=== PATIENT | male | born 1940 | race Caucasian/White ===

== ENCOUNTER 2018-11-26 08:43 | Emergency (ER) | payer MEDICARE, OTHER ==
[~2018-11-26] VITALS: Ht 180.3 cm; Wt 102.1 kg
--- OUTSIDE RECORDS SUMMARY | 2018-11-26 08:46 | XMS REPORT | Clinical Summary ---
Author Author KELLE [facility] Address Unknown Phone Unavailable Care Team Providers Care Metal Inspector Name Role Phone Hussein Quintero MD PCP Unavailable Allergies No Known Allergies Medications End Date Status Medication Sig Dispensed Refills Start Date Active naproxen (NAPROSYN) 500 Take 500 mg 0 MG tablet by mouth 2 (two) times daily with breakfast and dinner. Active ergocalciferol, vitamin Take 1 0 D2, (VITAMIN D2 ORAL) capsule by mouth daily. Active ibandronate (BONIVA) 150 Take 150 mg 0 mg tablet by mouth every 30 (thirty) days Take in AM with glass of water prior to food, don't lie down for 30 minutes. . Active zytbpkcdrbma-byrv-orram Take 1 tablet 0 acid (CENTRUM) 18-400 by mouth mg-mcg Tab daily. Active calcium carbonate-vitamin Take 1 tablet 0 D3 (OSCAL-D) 500 by mouth mg(1,250mg) -200 unit per daily. tablet Active verapamil (VERELAN PM) Take 180 mg 0 180 MG 24 hr capsule by mouth every morning. Active pravastatin (PRAVACHOL) Take 10 mg by 0 10 MG tablet mouth daily. Active omeprazole (PRILOSEC) 40 Take 40 mg by 0 MG capsule mouth daily. Active Problems Not on file Encounters Care Team Description Date Type Specialty Sarai Tripp MD COLONOSCOPY 06/07/2018 Surgery Kelly Muller MD 06/07/2018 Anesthesia Event Sarai Tripp MD 06/07/2018 Hospital Encounter Resource, [facility] Phone 05/20/2018 Hospital Pre-Admission Testing Encounter after 11/25/2017 Social History Date Tobacco Use Types Packs/Day Years Used Never Smoker Smokeless Tobacco: Never Used Alcohol Use Drinks/Week oz/Week Comments No Alcohol Habits Answer Date Recorded How often do you have a drink containing alcohol? Never 05/20/2018 How many drinks containing alcohol do you have on Not asked a typical day when you are drinking? How often do you have six or more drinks on one Not asked occasion? Sex Assigned at Date Recorded Not on file Industry Job Start Date Occupation Not on file Not on file Not on file Travel End Travel History Travel Start No recent travel history available. Last Filed Vital Signs Time Taken Vital Sign Reading 06/07/2018 11:50 AM DIRECT RESPONSE CONSULTANT Blood Pressure 131/72 06/07/2018 11:50 AM DIRECT RESPONSE CONSULTANT Pulse 74 06/07/2018 11:25 AM DIRECT RESPONSE CONSULTANT Temperature 36.3 C (97.4 F) 06/07/2018 11:50 AM DIRECT RESPONSE CONSULTANT Respiratory Rate 16 06/07/2018 11:50 AM DIRECT RESPONSE CONSULTANT Oxygen Saturation 98% - Inhaled Oxygen - Concentration 06/07/2018 9:46 AM DIRECT RESPONSE CONSULTANT Weight 99.8 kg (220 lb) 06/07/2018 9:46 AM DIRECT RESPONSE CONSULTANT Height 182.9 cm (6') 06/07/2018 9:46 AM DIRECT RESPONSE CONSULTANT Body Mass Index 29.84 Plan of Treatment Not on file Procedures Comments Procedure Name Priority Date/Time Associated Diagnosis REPORT OF PROCEDURE - 06/07/2018 ENDOSCOPY URL 11:31 AM DIRECT RESPONSE CONSULTANT REPORT OF PROCEDURE - 06/07/2018 ENDOSCOPY URL 11:23 AM DIRECT RESPONSE CONSULTANT TISSUE EXAM AP Routine 06/07/2018 10:44 AM DIRECT RESPONSE CONSULTANT UPPER ENDOSCOPY,BIOPSY 06/07/2018 Altered bowel habits 10:30 AM DIRECT RESPONSE CONSULTANT Rectal pain Pill dysphagia Globus syndrome COLONOSCOPY 06/07/2018 Altered bowel habits 10:30 AM DIRECT RESPONSE CONSULTANT Rectal pain Pill dysphagia 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 Results * REPORT OF PROCEDURE - ENDOSCOPY URL (06/07/2018 11:31 AM DIRECT RESPONSE CONSULTANT) Narrative Performed At * REPORT OF PROCEDURE - ENDOSCOPY URL (06/07/2018 11:23 AM DIRECT RESPONSE CONSULTANT) Narrative Performed At * Tissue Exam (06/07/2018 10:44 AM DIRECT RESPONSE CONSULTANT) Case Report Surgical Pathology [facility] Report [facility] Case: [id number] Authorizing Provider:Sarai Tripp MDCollected: 06/07/2018 1044 Ordering Location: [facility] ENDOSCOPY Received: 06/07/2018 1517 SERVICES Pathologist: Lilibeth Curry MD Specimens: A) - Biopsy, Gastric, Random stomach biopsies r/o H. pylori B) - Distal Esophagus, Distal esophageal biopsies C) - Proximal Esophagus, Proximal esophageal biopsies DIAGNOSIS A. GASTRIC, RANDOM BIOPSY: [facility] - GASTRIC BODY AND ANTRUM [facility] TYPE MUCOSA WITH MILD CHRONIC INACTIVE GASTRITIS - WARTHIN-STARRY STAIN NEGATIVE FOR H. PYLORI-LIKE ORGANISMS - IMMUNOSTAIN FOR H. PYLORI IS NEGATIVE B. DISTAL ESOPHAGUS, BIOPSY: - ESOPHAGUS SQUAMOUS MUCOSA WITH MILD BASAL CELL HYPERPLASIA AND INCREASED INTRAEPITHELIAL LYMPHOCYTES - FINDINGS SUGGESTIVE OF REFLUX C. PROXIMAL ESOPHAGUS, BIOPSY: - ESOPHAGUS SQUAMOUS MUCOSA WITH MILD REACTIVE CHANGES SJ/pl Signing Pathologist Direct Phone Line: [phone] COMMENT Endoscopic report reviewed. [facility] CPT Code(s) 28691 x3; 14346 x1; 69137 x1 [facility] CLINICAL HISTORY Altered bowel habits, rectal [facility] pain, pill dysphagia and [facility] globus syndrome, rule out H. Pylori SPECIMEN SOURCE A. Random gastric biopsy. B. [facility] Distal esophagus biopsy. C. [facility] Proximal esophagus biopsy GROSS DESCRIPTION Specimens are received in [facility] three containers of formalin [facility] all labeled with the patient's information. Specimen A: Labeled "random gastric biopsy" consists of two fragments of morris tissue measuring 0.1 and 0.2 cm, submitted entirely in A1. Specimen B: Labeled "distal esophagus biopsy" consists of two fragments of off-white tissue measuring 0.1 and 0.2 cm, submitted entirely in B1. Specimen C: Labeled "proximal esophageal biopsy" consists of two less than 0.1 cm fragments of off-white tissue submitted entirely in C1. CG/ew MICROSCOPIC DESCRIPTION Performed [facility] SPECIAL STUDIES The interpretation of this [facility] case included the use of [facility] immunohistochemistry or special stains. Immunohistochemistry technical testing was performed at [facility], Pathology Laboratory where it was developed and its performance characteristics were determined. It has not been cleared or approved by the U.S. Food and Drug Administration. The FDA has determined that such clearance or approval is not necessary. The test is used for clinical purposes. It should not be regarded as investigational or for research. This laboratory is certified under the Clinical Laboratory Improvement Amendments of 1988 (CLIA-88) as qualified to perform high complexity clinical laboratory testing. Specimen Tissue Tissue - Distal Esophagus Tissue - Proximal Esophagus Performing Organization Address City/State/Zipcode Phone Number [facility] [address] [place] [address] [facility] after 11/25/2017 Insurance Payer Benefit Subscriber ID Type Phone Address Plan / Group MEDICARE MEDICARE A xxxxxxxxxxx Medicare B OTHER-COMMERCIAL GENERIC xxxxxxxxxxxx COMMERCIAL
--- OUTSIDE RECORDS SUMMARY | 2018-11-26 08:46 | XMS REPORT ---
Author Author [facility] Address Unknown Phone Unavailable Care Team Providers Care Lokie Engineer Name Role Phone OSCAR TRIPP Unavailable Unavailable Payers Payer Name Policy Type Policy Number Effective Date Expiration Date Problems This patient has no known problems. Allergies, Adverse Reactions, Alerts Allergy Name Allergy Type Status Severity Reaction(s) Onset Date Inactive Date Treating Clinician Comments No Known Drug Allergies DA Active U 2018-07-13 00:00:00 No Known Drug Allergies DA Active U 2018-07-06 00:00:00 No Known Drug Intolerances DA Active U 2009-01-17 00:00:00 Medications This patient has no known medications. Results Test Description Test Time Test Comments Text Results Atomic Results Result Comments CBC W/AUTO DIFF 2018-08-01 07:56:00 WHITE BLOOD CELL (test code=WBC) 8.2 K/mm3 4.5-11.2 DONE AT: [facility] [address] [place] [address] RED BLOOD CELL (test code=RBC) 5.43 M/mm3 3.42-5.20 HEMOGLOBIN (test code=HGB) 15.4 g/dL 10.2-14.9 HEMATOCRIT (test code=HCT) 48.7 % 31.3-44.8 MEAN CELL VOLUME (test code=MCV) 90 fL 81-95 MEAN CELL HGB (test code=MCH) 28.4 pg 27-34 MEAN CELL HGB CONCENTRATION (test code=MCHC) 31.6 gm/dL 32-35 RED CELL DISTRIBUTION WIDTH (test code=RDW) 13.1 % 11.8-14.8 PLT (test code=PLT) 331 K/mm3 135-380 MEAN PLATELET VOLUME (test code=MPV) 9.7 fl 9.1-12.7 NEUTROPHIL % (test code=NT%) 50.0 % 51.5-79.7 LYMPHOCYTE % (test code=LY%) 37.9 % 14-40 MONOCYTE % (test code=MO%) 8.3 % 4.0-10.2 EOSINOPHIL % (test code=EO%) 2.7 % 0-4.1 BASOPHIL % (test code=BA%) 0.7 % 0.1-0.7 NEUTROPHIL # (test code=NT#) 4.1 K/mm3 () LYMPHOCYTE # (test code=LY#) 3.1 K/mm3 () MONOCYTE # (test code=MO#) 0.7 K/mm3 () EOSINOPHIL # (test code=EO#) 0.22 K/mm3 () BASOPHIL # (test code=BA#) 0.1 K/mm3 () PLATELET MORPHOLOGY REQUIRED (test code=PLTMR) NORMAL NORMAL SED [id number] 07:56:00* Test Item Value Reference Range Comments SED RATE (test code=SEDW) 20 mm/hr 0-20 VANCOMYCIN [id number] 06:07:00* Test Item Value Reference Range Comments VANCOMYCIN TROUGH (test code=VANCT) 8.1 mcg/mL 5-10 THERAPEUTIC RANGE: PEAK: 30-40 mcg/ml TROUGH: 5-10 mcg/ml TOXIC RANGE: 80-100 mcg/ml DATE OF LAST DOSE: 07/31/18TIME OF LAST DOSE: 0400CBC W/AUTO [id number] 16:58:00* Test Item Value Reference Range Comments WHITE BLOOD CELL (test code=WBC) 8.2 K/mm3 4.5-11.2 DONE AT: [address] [address] RED BLOOD CELL (test code=RBC) 5.43 M/mm3 3.42-5.20 HEMOGLOBIN (test code=HGB) 15.4 g/dL 10.2-14.9 HEMATOCRIT (test code=HCT) 48.7 % 31.3-44.8 MEAN CELL VOLUME (test code=MCV) 90 fL 81-95 MEAN CELL HGB (test code=MCH) 28.4 pg 27-34 MEAN CELL HGB CONCENTRATION (test code=MCHC) 31.6 gm/dL 32-35 RED CELL DISTRIBUTION WIDTH (test code=RDW) 13.1 % 11.8-14.8 PLT (test code=PLT) 331 K/mm3 135-380 MEAN PLATELET VOLUME (test code=MPV) fl 9.1-12.7 NEUTROPHIL % (test code=NT%) 50.0 % 51.5-79.7 LYMPHOCYTE % (test code=LY%) 37.9 % 14-40 MONOCYTE % (test code=MO%) 8.3 % 4.0-10.2 EOSINOPHIL % (test code=EO%) 2.7 % 0-4.1 BASOPHIL % (test code=BA%) 0.7 % 0.1-0.7 NEUTROPHIL # (test code=NT#) 4.1 K/mm3 () LYMPHOCYTE # (test code=LY#) 3.1 K/mm3 () MONOCYTE # (test code=MO#) 0.7 K/mm3 () EOSINOPHIL # (test code=EO#) 0.22 K/mm3 () BASOPHIL # (test code=BA#) 0.1 K/mm3 () PLATELET MORPHOLOGY REQUIRED (test code=PLTMR) NORMAL NORMAL SED [id number] 16:58:00* Test Item Value Reference Range Comments SED RATE (test code=SEDW) 20 mm/hr 0-20 CBC W/AUTO [id number] 16:57:00* Test Item Value Reference Range Comments WHITE BLOOD CELL (test code=WBC) 8.2 K/mm3 4.5-11.2 RED BLOOD CELL (test code=RBC) 5.43 M/mm3 3.42-5.20 HEMOGLOBIN (test code=HGB) 15.4 g/dL 10.2-14.9 HEMATOCRIT (test code=HCT) 48.7 % 31.3-44.8 MEAN CELL VOLUME (test code=MCV) 90 fL 81-95 MEAN CELL HGB (test code=MCH) 28.4 pg 27-34 MEAN CELL HGB CONCETRATION (test code=MCHC) 31.6 gm/dL 32-35 RED CELL DISTRIBUTION WIDTH (test code=RDW) 13.1 % 11.8-14.8 PLATELET COUNT (test code=PLT) 331 K/mm3 135-380 IMMATURE PLATELET FRACTION (test code=IPF) 0.0 % 0.0-10.8 MEAN PLATELET VOLUME (test code=MPV) 9.7 fl 9.1-12.7 NEUTROPHIL % (test code=NT%) 50.0 % 51.5-79.7 LYMPHOCYTE % (test code=LY%) 37.9 % 14-40 MONOCYTE % (test code=MO%) 8.3 % 4.0-10.2 EOSINOPHIL % (test code=EO%) 2.7 % 0-4.1 BASOPHIL % (test code=BA%) 0.7 % 0.1-0.7 NEUTROPHIL # (test code=NT#) 4.1 K/mm3 LYMPHOCYTE # (test code=LY#) 3.1 K/mm3 MONOCYTE # (test code=MO#) 0.7 K/mm3 EOSINOPHIL # (test code=EO#) 0.22 K/mm3 BASOPHIL # (test code=BA#) 0.1 K/mm3 RBC MORPHOLOGY REQUIRED (test code=RBCM) NORMAL NORMAL PLATELET MORPHOLOGY REQUIRED (test code=PLTMR) NORMAL NORMAL SED [id number] 16:57:00* Test Item Value Reference Range Comments SED RATE (test code=SEDW) 20 mm/hr 0-20 CBC W/AUTO [id number] 16:20:00* Test Item Value Reference Range Comments WHITE BLOOD CELL (test code=WBC) 8.2 K/mm3 4.5-11.2 DONE AT: [address] [address] RED BLOOD CELL (test code=RBC) 5.43 M/mm3 3.42-5.20 HEMOGLOBIN (test code=HGB) 15.4 g/dL 10.2-14.9 HEMATOCRIT (test code=HCT) 48.7 % 31.3-44.8 MEAN CELL VOLUME (test code=MCV) 90 fL 81-95 MEAN CELL HGB (test code=MCH) 28.4 pg 27-34 MEAN CELL HGB CONCENTRATION (test code=MCHC) 31.6 gm/dL 32-35 RED CELL DISTRIBUTION WIDTH (test code=RDW) 13.1 % 11.8-14.8 PLT (test code=PLT) 331 K/mm3 135-380 MEAN PLATELET VOLUME (test code=MPV) fl 9.1-12.7 NEUTROPHIL % (test code=NT%) 50.0 % 51.5-79.7 LYMPHOCYTE % (test code=LY%) 37.9 % 14-40 MONOCYTE % (test code=MO%) 8.3 % 4.0-10.2 EOSINOPHIL % (test code=EO%) 2.7 % 0-4.1 BASOPHIL % (test code=BA%) 0.7 % 0.1-0.7 NEUTROPHIL # (test code=NT#) 4.1 K/mm3 () LYMPHOCYTE # (test code=LY#) 3.1 K/mm3 () MONOCYTE # (test code=MO#) 0.7 K/mm3 () EOSINOPHIL # (test code=EO#) 0.22 K/mm3 () BASOPHIL # (test code=BA#) 0.1 K/mm3 () PLATELET MORPHOLOGY REQUIRED (test code=PLTMR) NORMAL NORMAL SED [id number] 16:20:00* Test Item Value Reference Range Comments SED RATE (test code=SEDW) mm/hr 0-15 CBC W/AUTO [id number] 16:19:00* Test Item Value Reference Range Comments WHITE BLOOD CELL (test code=WBC) 8.2 K/mm3 4.5-11.2 RED BLOOD CELL (test code=RBC) 5.43 M/mm3 3.42-5.20 HEMOGLOBIN (test code=HGB) 15.4 g/dL 10.2-14.9 HEMATOCRIT (test code=HCT) 48.7 % 31.3-44.8 MEAN CELL VOLUME (test code=MCV) 90 fL 81-95 MEAN CELL HGB (test code=MCH) 28.4 pg 27-34 MEAN CELL HGB CONCETRATION (test code=MCHC) 31.6 gm/dL 32-35 RED CELL DISTRIBUTION WIDTH (test code=RDW) 13.1 % 11.8-14.8 PLATELET COUNT (test code=PLT) 331 K/mm3 135-380 IMMATURE PLATELET FRACTION (test code=IPF) 0.0 % 0.0-10.8 MEAN PLATELET VOLUME (test code=MPV) 9.7 fl 9.1-12.7 NEUTROPHIL % (test code=NT%) 50.0 % 51.5-79.7 LYMPHOCYTE % (test code=LY%) 37.9 % 14-40 MONOCYTE % (test code=MO%) 8.3 % 4.0-10.2 EOSINOPHIL % (test code=EO%) 2.7 % 0-4.1 BASOPHIL % (test code=BA%) 0.7 % 0.1-0.7 NEUTROPHIL # (test code=NT#) 4.1 K/mm3 LYMPHOCYTE # (test code=LY#) 3.1 K/mm3 MONOCYTE # (test code=MO#) 0.7 K/mm3 EOSINOPHIL # (test code=EO#) 0.22 K/mm3 BASOPHIL # (test code=BA#) 0.1 K/mm3 RBC MORPHOLOGY REQUIRED (test code=RBCM) NORMAL NORMAL PLATELET MORPHOLOGY REQUIRED (test code=PLTMR) NORMAL NORMAL SED [id number] 16:19:00* Test Item Value Reference Range Comments SED RATE (test code=SEDW) mm/hr 0-20 BASIC METABOLIC [id number] 16:11:00* Test Item Value Reference Range Comments SODIUM (test code=NA) 139 mEq/L 135-145 POTASSIUM (test code=K) 4.1 mEq/L 3.5-5.0 CHLORIDE (test code=CL) 102 mEq/L 100-115 CARBON DIOXIDE (test code=CO2) 29 mEq/L 22-31 GLUCOSE (test code=GLU) 96 mg/dL 65-110 BLOOD UREA NITROGEN (test code=BUN) 13 mg/dL 7-18 GLOMERULAR FILTRATION RATE (test code=GFR) 72.1 >60 Unit of measure: mL/min/1.73 [id number] Range:Healthy Adults >90 mL/min/1.73 m2 For Chronic Kidney Disease: Stage II Mild Decrease in GFR 60-90 Stage III Moderate Decrease in GFR 30-59 Stage IV Severe Decrease in GFR 15-29 Stage V Kidney Failure <15Unit of measure: mL/min/1.73 [id number] Range:Healthy Adults >90 mL/min/1.73 m2 For Chronic Kidney Disease: Stage II Mild Decrease in GFR 60-90 Stage III Moderate Decrease in GFR 30-59 Stage IV Severe Decrease in GFR 15-29 Stage V Kidney Failure <15 CREATININE (test code=CREAT) 1.0 mg/dL 0.7-1.3 CALCIUM (test code=CA) 8.9 mg/dL 8.4-10.2 BASIC METABOLIC [id number] 16:10:00* Test Item Value Reference Range Comments SODIUM (test code=NA) 139 mEq/L 135-145 POTASSIUM (test code=K) 4.1 mEq/L 3.5-5.0 CHLORIDE (test code=CL) 102 mEq/L 100-115 CARBON DIOXIDE (test code=CO2) 29 mEq/L 22-31 GLUCOSE (test code=GLU) 96 mg/dL 65-110 BLOOD UREA NITROGEN (test code=BUN) 13 mg/dL 7-18 GLOMERULAR FILTRATION RATE (test code=GFR) 72 ml/min >60 CREATININE (test code=CREAT) 1.0 mg/dL 0.7-1.3 CALCIUM (test code=CA) 8.9 mg/dL 8.4-10.2 TISSUE [id number] 10:38:00Surgical Pathology Report Case: [id number] Authorizing Provider: Sarai Tripp MD Collected: 06/07/2018 1044 Ordering Location: [facility] ENDOSCOPY Received: 06/07/2018 1517 SERVICES Pathologist: Lilibeth Curry MD Specimens: A) - Biopsy, Gastric, Random stomach biopsies r/o H. pylori B) - Distal Esophagus, Distal esophageal biopsies C) - Proximal Esophagus, Proximal esophageal biopsies A. GASTRIC, RANDOM BIOPSY: - GASTRIC BODY AND ANTRUM TYPE MUCOSA WITH MILD CHRONIC INACTIVE GASTRITIS - WARTHIN-STARRY STAIN NEGATIVE FOR H. PYLORI-LIKE ORGANISMS - IMMUNOSTAIN FOR H. PYLORI IS NEGATIVE B. DISTAL ESOPHAGUS, BIOPSY: - ESOPHAGUS SQUAMOUS MUCOSA WITH MILD BASAL CELL HYPERPLASIA AND INCREASED INTRAEPITHELIAL LYMPHOCYTES - FINDINGS SUGGESTIVE OF REFLUXC. PROXIMAL ESOPHAGUS, BIOPSY: - ESOPHAGUS SQUAMOUS MUCOSA WITH MILD REACTIVE CHANGESSJ/pl Signing Pathologist Direct Phone Line: [phone] signed by Lilibeth Curry MD on 06/09/2018 at 10:38 AMEndoscopic report reviewed. 46224 x3; 55562 x1; 65776 q0Bongirr bowel habits, rectal pain, pill dysphagia and globus syndrome, rule out H. Pylori A. Random gastric biopsy. B. Distal esophagus biopsy. C. Proximal esophagus biopsy Specimens are received in three containers of formalin all labeled with the patient's information. Specimen A: Labeled "random gastric biopsy" consists of two fragments of morris tissue measuring 0.1 and 0.2 cm, submitted entirely in A1. Specimen B: Labeled "distal esophagus biopsy" consists of two fragments of off- white tissue measuring 0.1 and 0.2 cm, submitted entirely in B1. Specimen C: Labeled "proximal esophageal biopsy" consists of two less than 0.1 cm fragments of off-white tissue submitted entirely in C1. CG/ew Performed The interpretation of this case included the use of immunohistochemistry or special stains. Immunohistochemistry technical testing was performed at [facility], Pathology Laboratory where it was developed and its performance ch aracteristics were determined. It has not been cleared or approved by the U.S. F ood and Drug Administration. The FDA has determined that such clearance or appro klaudia is not necessary. The test is used for clinical purposes. It should not be r egarded as investigational or for research. This laboratory is certified under t he Clinical Laboratory Improvement Amendments of 1988 (CLIA-88) as qualified to perform high complexity clinical laboratory testing.
--- NOTE | 2018-11-26 11:03 | Diagnostic Imaging Report ---
Lumbar Spine Radiographs: 3 views HISTORY: Pain COMPARISON: None available. DISCUSSION: Some of the osseous structures are partially obscured by stool and bowel gas. Also Limited by generalized demineralization. There are five non-rib bearing lumbar vertebral bodies. The alignment of the spine is within normal limits. No displaced fracture or new compression deformity is identified. Again seen T12 vertebral body compression deformity with evidence of vertebroplasty. L5-S1 facet arthropathy. IMPRESSION: No acute radiographic abnormality. If there is high clinical concern for traumatic injury, CT can be obtained for further evaluation. Again seen T12 vertebral body compression deformity with evidence of vertebroplasty. Signed by: Dr. Gabriele Deleon MD on 11/26/2018 11:00 AM
--- NOTE | 2018-11-26 11:05 | Diagnostic Imaging Report ---
THORACIC SPINE 2VW - 3 views HISTORY: Pain COMPARISON: None available. FINDINGS: Limited by generalized demineralization. Exaggerated kyphosis of the thoracic spine. Vertebral body heights are maintained except for old T12 compression deformity. No definite evidence of acute displaced fracture or subluxation. Multilevel degenerative changes. IMPRESSION: Limited by generalized demineralization. No definite evidence of acute abnormality. Multilevel degenerative changes. Old T12 compression deformity. Signed by: Dr. Gabriele Deleon MD on 11/26/2018 11:02 AM
== END 2018-11-26 11:41 | disposition home or self-care (01) ==
LOC: ER 08:43
DX: M54.5 Low back pain (principal); M54.6 Pain in thoracic spine; S23.3XXA Sprain of ligaments of thoracic spine, initial encounter; S33.5XXA Sprain of ligaments of lumbar spine, initial encounter
CPT/HCPCS: 72070; 72110; 99283

== ENCOUNTER → 2018-12-14 | Outpatient (CLI) | payer MEDICARE, OTHER ==
--- NOTE | 2018-12-14 11:41 | Diagnostic Imaging Report ---
EXAMINATION: MRI of the thoracic and lumbar spine without contrast HISTORY: Mid and low back pain for the last month after a fall COMPARISON: Lumbar spine MRI 12/20/2008 TECHNIQUE: Sagittal T1 without contrast, T2, and STIR; axial T2. Coronal T2. FINDINGS: Curvature: Increased thoracic kyphosis. Mild thoracolumbar kyphosis due to chronic anterior wedging/compression fracture of the T12 vertebral body. Normal lumbar lordosis. Vertebrae: -Status post percutaneous cement injection for treatment of T12 compression fracture, unchanged from prior lumbar spine MRI dated 12/20/2008 and lumbar spine x-ray of 11/26/2018. Stable minimal posterior retropulsion of the superior endplate with mild canal narrowing. -Subchondral bone marrow edema adjacent to the superior endplate of T11 is likely related to nondisplaced osteoporotic trabecular fracture. -Overall decreased bone marrow density. -Anterior bridging osteophyte through the mid thoracic spine, with possible partial interbody fusion from T4 to T6. -Posterior interbody fusion is also suspected at T11-T12. Discs: Mild symmetric disc bulge and facet arthrosis from L1-L2 to L5-S1 without significant spinal canal or foraminal stenosis. Spinal canal: No mass or abnormal blood vessels. Spinal cord: Normal size and signal intensity. Conus medullaris and cauda equina nerve roots: Unremarkable. The tip of the conus is located at the level of L1-L2. Foramina: Unremarkable. Paraspinal soft tissues: Mild supraspinatus musculature atrophy. Proximal ribs: No abnormal signal intensity. Sacroiliac joints: -Degenerative changes with fusion bilaterally. -Diffuse fatty replacement of the partially visualized sacrum and pelvic bones related to osteoporosis. IMPRESSION: 1. Recent, likely subacute trabecular fracture of the T11 vertebral body without decreased vertebral body height, posterior retropulsion or canal stenosis, if there is no improvement to medical management a percutaneous vertebral cement injection (vertebral/kyphoplasty) is recommended. 2. Status post vertebral/kyphoplasty of T12 vertebral compression fracture, unchanged from prior studies. 3. Increase thoracic kyphosis as detailed above. 4. Mild degenerative changes of the lumbar spine without significant canal or foraminal stenosis. The findings were discussed with the attending physician Dr. Almaguer on 12/14/2018 at 11:20 AM Signed by: Dr. Misty Katz M.D. on 12/14/2018 11:38 AM
== END ==
LOC: MRI 08:49
PROVIDERS: ATTEND Anesthesiology Pain Medicine
DX: M54.6 Pain in thoracic spine (principal); M54.5 Low back pain
CPT/HCPCS: 72146; 72148

== ENCOUNTER 2022-06-01 09:38 | Emergency (ER) | payer MEDICARE, OTHER ==
[~2022-06-01] VITALS: Ht 180.3 cm; Wt 102.1 kg
[2022-06-01] MEDS ORDERED: NAPROXEN250 MG PO (12:13)
== END 2022-06-01 12:59 | disposition home or self-care (01) ==
LOC: ER 09:43
DX: R07.81 Pleurodynia (principal); W01.0XXA Fall on same level from slipping, tripping and stumbling without subsequent striking against object, initial encounter; Y93.H2 Activity, gardening and landscaping; Y92.89 Other specified places as the place of occurrence of the external cause; I10 Essential (primary) hypertension; E78.5 Hyperlipidemia, unspecified; K21.9 Gastro-esophageal reflux disease without esophagitis; M54.9 Dorsalgia, unspecified; G89.29 Other chronic pain; I25.2 Old myocardial infarction
CPT/HCPCS: 71101; 99283

== ENCOUNTER 2023-05-05 09:59 | Emergency (ER) | payer MEDICARE, OTHER ==
[~2023-05-05] VITALS: Ht 180.3 cm; Wt 94.3 kg
[~2023-05-05 09:59] MED LIST: NAPROXEN250 MG PO
[2023-05-05] MEDS ORDERED: BACTRIM DS TAB1 EACH PO (10:59)
[2023-05-05 11:00] VITALS: O2SAT 99
== END 2023-05-05 11:29 | disposition home or self-care (01) ==
LOC: ER 10:05
DX: L76.82 Other postprocedural complications of skin and subcutaneous tissue (principal); I10 Essential (primary) hypertension; E78.5 Hyperlipidemia, unspecified; K21.9 Gastro-esophageal reflux disease without esophagitis; M54.9 Dorsalgia, unspecified; G89.29 Other chronic pain; I25.2 Old myocardial infarction; Z95.810 Presence of automatic (implantable) cardiac defibrillator
CPT/HCPCS: 99283